=== PATIENT | female | born 1980 | race African-American/Black ===

== ENCOUNTER 2019-10-23 15:54 | Emergency (ER) | payer SELFPAY ==
--- NOTE | 2019-10-23 16:05 | PDOC ---
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
[2019-10-23 16:35] VITALS: BMI 32.1
--- NOTE | 2019-10-23 16:55 | PDOC ---
Attending Attestation - Resident Resident Name: Moise Sanchez - HPI HPI: 10/23/19 16:47 Pt presents to the ED complaining of the acute onset of LUE numbness that extends from her elbow to her fingertips. Also complaining of numbness in a glove distribution of the RUE. Denies other neurologic symptoms. Questionable history of CVA. - Physicial Exam PE: 10/23/19 16:55 Agree with resident exam. Patient is alert and oriented x 3 and in no acute distress. CN 2-12 grossly intact. Intact strength B/L UE. intact strength b/ l LE. Speech fluent and clear. - Medical Decision Making 10/23/19 17:00 Pt presents to the ED complaining of upper extremity numbness without other focal neurologic symptoms. Symptoms are inconsistent with CVA. Will check labs and CT head and reassess.
--- NOTE | 2019-10-23 17:04 | PDOC ---
History of Present Illness - General Chief Complaint: Injury Stated Complaint: CVA Time Seen by Provider: 10/23/19 16:01 - History of Present Illness Initial Comments: Ms. Catherine is a 39 y/o female with PMH significant HTN, DM, migraines, presenting today with left sided numbness. Reports that she had recently fallen a few days ago in the bathtub and injured her left shoulder. She went to urgent care today for evaluation of the pain in her shoulder when she started having numbness in her left arm and leg. Sent in to the ED by urgent care. Reports that the left sided numbness and pain started a couple hours prior to arrival. Reports that she has been seen in the hospital before for numbness in her extremities, but is not able to provide additional history in terms of where , for how long, when, and what treatments she received. Past History - Past Medical History Allergies/Adverse Reactions: Allergies Allergy/AdvReac Type Severity Reaction Status Date / Time No Known Allergies Allergy Verified 10/23/19 16:35 CVA: Yes COPD: No HTN: Yes Hypercholesterolemia: Yes - Psycho Social/Smoking Cessation Hx Smoking History: Unknown if ever smoked Have you smoked in the past 12 months: No Information on smoking cessation initiated: No Hx Alcohol Use: No Drug/Substance Use Hx: No Review of Systems - Review of Systems Comments:: GENERAL/CONSTITUTIONAL: No fever or chills. Reports generalized malaise. HEAD, EYES, EARS, NOSE AND THROAT: No change in vision. No change in hearing. No sore throat._ CARDIOVASCULAR: No chest pain or shortness of breath_ RESPIRATORY: Denies cough, hemoptysis_ GASTROINTESTINAL: No nausea, vomiting, diarrhea or constipation._ GENITOURINARY: No dysuria, frequency, or change in urination._ MUSCULOSKELETAL: No joint or muscle swelling or pain. No neck or back pain._ SKIN: No rash_ NEUROLOGIC: No headache, vertigo, loss of consciousness. Reports numbness of the left upper and lower extremities. ENDOCRINE: No increased thirst. No abnormal weight change_ HEMATOLOGIC/LYMPHATIC: No anemia, easy bleeding, or history of blood clots._ ALLERGIC/IMMUNOLOGIC: No hives or skin allergy._ *Physical Exam - Vital Signs Last Vital Signs Temp Pulse Resp BP Pulse Ox 97.9 F 88 16 158/110 H 100 10/23/19 16:00 10/23/19 16:00 10/23/19 16:00 10/23/19 16:00 10/23/19 16:00 - Physical Exam GENERAL: Awake, alert, and oriented to person/place/time, in no acute distress_ HEAD: No signs of trauma, normoc ephalic, atraumatic _ EYES: PERRLA, EOMI, sclera anicteric, conjunctiva clear_ ENT: Hearing grossly normal, nares patent, oropharynx clear without exudates. No uvular deviation. Moist mucosa_ NECK: Normal ROM, supple, no lymphadenopathy, JVD, or masses_ LUNGS: No distress, speaks in full sentences, clear to auscultation bilaterally _ HEART: Regular rate and rhythm, normal S1 and S2, no murmurs appreciated, peripheral pulses normal and equal bilaterally._ ABDOMEN: Soft, nontender, normoactive bowel sounds. No guarding, no rebound. No masses_ EXTREMITIES: Normal inspection, Normal range of motion, no edema. No clubbing or cyanosis_ NEUROLOGICAL: Cranial nerves II through XII grossly intact. Normal speech, normal gait, no focal motor deficits. Reports decreased sensation in the left upper and lower extremities. SKIN: Warm, Dry, normal turgor, no rashes or lesions noted_ ED Treatment Course - LABORATORY CBC & Chemistry Diagram: 10/23/19 17:16 10/23/19 17:16 - RADIOLOGY Radiology Studies Ordered: Category Date Time Status HEAD CT WITHOUT CONTRAST [CT] Stat CT Scan 10/23/19 16:13 Ordered CHEST X-RAY PORTABLE* [RAD] Stat Radiology 10/23/19 16:13 Ordered Medical Decision Making - Medical Decision Making 39F presenting with numbness in the left upper and lower extremity. Reports that she has had similar symptoms before but not able to provide much detail. -cbc, cmp -ua, ucx, upreg -ekg, trop, cxr -tylenol, fluids 10/23/19 18:17 EKG shows NSR, 83 bpm, no ST elevation/depression, QTc 446. 10/23/19 18:18 Labs reviewed. CXR shows no acute intra thoracic pathology. Laboratory Tests 10/23/19 10/23/19 10/23/19 17:16 17:16 17:16 WBC 7.1 RBC 5.48 H Hgb 14.8 Hct 45.5 H MCV 83.0 MCH 27.0 MCHC 32.5 RDW 15.4 Plt Count 392 MPV 8.9 Absolute Neuts (auto) 5.9 Neutrophils % 83.1 H Lymphocytes % 15.6 Monocytes % 0.9 L Eosinophils % 0.0 Basophils % 0.4 Nucleated RBC % 0 Sodium 137 Potassium 3.1 L Chloride 101 Carbon Dioxide 24 Anion Gap 12 BUN 11.3 Creatinine 1.2 Est GFR (CKD-EPI)AfAm 65.47 Est GFR (CKD-EPI)NonAf 56.48 Random Glucose 166 H Calcium 9.6 Total Bilirubin 0.4 AST 13 L ALT 20 Alkaline Phosphatase 82 Creatine Kinase 107 Troponin I < 0.02 Total Protein 9.2 H Albumin 4.4 10/23/19 21:30 CT head shows no acute intracranial pathology and no signs of CVA. Will give toradol. 10/23/19 23:08 CT c-spine shows no acute pathology. Pt reassessed. Reports moderate improvement with Toradol. Has an appointment with orthopedics on Wednesday. D/w the pt the plan to d/c and follow up with ortho for shoulder pain, neuro for nerve pain, and PCP. Pt verbalized agreement and understanding of plan. All questions answered. Return precautions given. Discharge - Discharge Information Problems reviewed: Yes Clinical Impression/Diagnosis: Numbness and tingling in left arm Condition: Stable Disposition: HOME - Admission No - Follow up/Referral Referrals: Ernesto Sinclair MD [Staff Physician] - Farhat Gomez MD [Staff Physician] - - Patient Discharge Instructions Patient Printed Discharge Instructions: DI for Numbness/tingling Additional Instructions: Please keep your appointment with your orthopedist on Wednesday. Please make a follow up appointment with your primary care doctor to follow up with your pain. Please make an appointment with a neurologist to address your numbness and tingling (referral provided here). Please take motrin as needed for your pain (follow instructions on the package). If you experience any new, worsening, or concerning symptoms, including severe headache, weakness, loss of consciousness, or any other concerns, please return to the emergency department. - Post Discharge Activity Work/Back to School Note: Back to Work
[2019-10-23] MEDS ORDERED: ACETAMINOPHEN 1000 MG/100 ML VIAL (NON FORMULARY) IVPB ONE (17:23)
[2019-10-23] MEDS ORDERED: SODIUM CHLORIDE 0.9% 500 ML INFUS.BAG IV ONE (17:23)
[2019-10-23] MEDS ORDERED: ACETAMINOPHEN INJECTION 100 ML IVPB ONE (17:33)
[2019-10-23 17:36] LABS: BASO % 0.4 % (0-2.0); HEMATOCRIT 45.5 % (32.4-45.2); HEMOGLOBIN 14.8 GM/dL (10.7-15.3); LYMPH % 15.6 % (8-40); MCHC 32.5 g/dl (32.0-36.0); MEAN PLT VOLUME 8.9 fl (7.5-11.1); MONO % 0.9 % (3.8-10.2); NEUT % 83.1 % (42.8-82.8); PLATELET COUNT 392 K/MM3 (134-434); RBC 5.48 M/mm3 (3.60-5.2); RDW 15.4 % (11.6-15.6); WHITE BLOOD COUNT 7.1 K/mm3 (4.0-10.0)
[2019-10-23 18:04] LABS: ALBUMIN 4.4 g/dl (3.4-5.0); BILIRUBIN,TOTAL 0.4 mg/dL (0.2-1); BLOOD UREA NITROGEN 11.3 mg/dL (7-18); CALCIUM 9.6 mg/dL (8.5-10.1); CREATININE 1.2 mg/dL (0.55-1.3); POTASSIUM 3.1 mmol/L (3.5-5.1); TOT PROT 9.2 g/dl (6.4-8.2)
[2019-10-23] MEDS ORDERED: KETOROLAC TROMETHAMINE 15 MG/ML VIAL IVPUSH ONE (22:20)
[2019-10-23] MEDS ORDERED: KETOROLAC TROMETHAMINE 15 MG/ML VIAL ONE (22:49)
[2019-10-24 06:02] VITALS: BP 117/100; PULSE 79; TEMP 98.3
--- NOTE | 2019-10-24 12:04 | EKG ---
Test Reason : Blood Pressure : / mmHG Vent. Rate : 087 BPM Atrial Rate : 087 BPM P-R Int : 160 ms QRS Dur : 082 ms QT Int : 396 ms P-R-T Axes : 030 059 053 degrees QTc Int : 476 ms NORMAL SINUS RHYTHM NONSPECIFIC T WAVE ABNORMALITY PROLONGED QT ABNORMAL ECG Confirmed by MD SVETA, ALEC ([id number]) on 10/24/2019 12:04:14 PM Referred By: Confirmed By:ALEC BANGURA MD
== END 2019-10-23 23:47 | disposition home or self-care (01) ==
LOC: JER 15:54
DX: R20.0 Anesthesia of skin (principal); M25.512 Pain in left shoulder; I10 Essential (primary) hypertension; E78.00 Pure hypercholesterolemia, unspecified; E11.9 Type 2 diabetes mellitus without complications; Z86.69 Personal history of other diseases of the nervous system and sense organs; W18.2XXA Fall in (into) shower or empty bathtub, initial encounter; Y93.E1 Activity, personal bathing and showering; Y92.031 Bathroom in apartment as the place of occurrence of the external cause
CPT/HCPCS: 36415; 70450-TC; 71045-TC-FY; 72125-TC; 80053; 82550; 84484; 85025; 93005; 93010; 99284-25; J0131